=== PATIENT | female | born 1985 | race African-American/Black ===

== ENCOUNTER 2016-09-27 10:21 | Day surgery (SDC) | payer OTHER ==
[~2016-09-27] VITALS: Ht 157.5 cm; Wt 80.0 kg
[~2016-09-27 10:21] MED LIST: ALLEGRA ALLERG180 MG PO; FLONASE16 G1 BOTH NARES; MIRENA52 MG IY; MUCINEX D ER T1 EACH PO; NAPROSYN500 MG PO; TAZORAC 0.05% C30 GM TP
[2016-09-27 10:45] VITALS: BP 111/78
[2016-09-27 16:15] VITALS: BP 113/75
[2016-09-27 17:16] VITALS: BP 109/75
[2016-09-27 17:50] VITALS: BP 140/80
[2016-09-27 17:52] VITALS: BP 113/71
[2016-09-28 09:09] LABS: INTERNAL CONTROL VALID? YES
== END 2016-09-27 18:00 | disposition home or self-care (01) ==
LOC: SDC 10:21
PROVIDERS: Surgery Plastic and Reconstructive Surgery
PROC: 0HBV0ZZ Excision of Bilateral Breast, Open Approach (ICD-10-PCS; principal; 2016-09-27)
DX: Q83.8 Other congenital malformations of breast (principal); Q83.1 Accessory breast; Q83.3 Accessory nipple
CPT/HCPCS: 84703; 88304; J0131; J0690; J1100; J1170; J2250; J2405; J3010